=== PATIENT | female | born 1960 | race Caucasian/White ===

== ENCOUNTER 2024-01-18 17:54 | Emergency (ER) | payer OTHER, SELFPAY ==
[2024-01-18 17:59] VITALS: BP 131/77
[2024-01-18 18:21] LABS: % Eosinophils 3.3 % (0-6); % Immature Granulocytes 0.1 % (0-0.5); % Lymphocytes 25.7 % (20.5-51.1); % Monocytes 6.2 % (1.7-9.3); % Neutrophils 63.7 % (42.2-75.2); Absolute Basophils 0.1 10^3/uL (0-0.2); Absolute Eosinophils 0.2 10^3/uL (0-0.7); Absolute Lymphocytes 1.9 10^3/uL (1.2-3.4); Absolute Monocytes 0.5 10^3/uL (0.1-0.6); Absolute Neutrophils 4.7 10^3/uL (1.4-6.5); Hematocrit 37.6 % (37.0-47.0); Hemoglobin 12.5 g/dL (12.0-16.0); Mean Corp Hgb Conc. 33.2 g/dL (33.0-37.0); Mean Corpuscular Hgb 27.7 pg (27.0-31.0); Mean Corpuscular Volume 83.2 fL (81.0-99.0); Mean Platelet Volume 8.9 fL (7.4-10.4); Nucleated Red Blood Cells % 0 %; Platelet Count 250 10^3/uL (130-400); Red Blood Cell Count 4.52 10^6/uL (4.20-5.40); Red Cell Dist. Width 13.8 % (11.5-14.5); White Blood Cell Count 7.3 10^3/uL (4.8-10.8)
[2024-01-18 18:32] LABS: APTT 27.3 Sec (23.4-35.0)
[2024-01-18 18:47] LABS: ALT (SGPT) 25 U/L (0-35); AST (SGOT) 19 U/L (14-36); Albumin 4.3 g/dl (3.5-5.0); Alkaline Phosphatase 122 U/L (38-126); Blood Urea Nitrogen 18 mg/dl (7-17); Calcium 9.6 mg/dl (8.4-10.2); Carbon Dioxide 28 mmol/L (22-30); Chloride 105 mmol/L (98-107); Glucose 105 mg/dl (70-99); Potassium 3.9 mmol/L (3.5-5.1); Sodium 138 mmol/L (135-145); Total Bilirubin 0.3 mg/dl (0.2-1.3); Total Protein 6.9 g/dl (6.3-8.2); eGFR > 60.00
[2024-01-18 19:03] LABS: NT-proBNP 128 pg/ml; Troponin I < 0.012 ng/ml
[2024-01-18 21:03] VITALS: BP 117/67
[2024-01-18 21:53] LABS: D-Dimer 0.34 ug/mlFEU (0.00-0.50)
--- NOTE | 2024-01-19 00:15 | ED.GENMED ---
History of Present Illness
General
Chief Complaint: Breathing Problem
Source: patient
Exam Limitations: none
Time Seen by Provider: 01/18/24 21:15
Nursing documentation reviewed up to this point in time: agreed with
Travel History
Have you had any contact with someone who has COVID-19?: No
Do you have any symptoms of coronavirus? Fever > 100 degrees, chills, cough, shortness of breath, sore throat, loss of taste or smell, muscle aches, or headache?: No
History of Present Illness
History of Present Illness:
Patient states she had an episode of feeling faint on Sunday. Noted tingling of extremities. Symptoms occurred after attempting to shovel snow. Symptolms resolved with rest. States on she developed SOb and nausea. She woke during the
night withthe sound of her heart pounding in her ear. States she was seen by today and advised to come to ED for eval. No current symptoms. Has appt with cardiology on March 07.
Past History
Past History
ED Past Medical History: Cancer (breast, thyroid)
ED Past Surgical History: Other (Lumpectomy)
Social History
Tobacco: Non-smoker
Alcohol: None
Drug: None
Phy Exam
General Physical Exam
General Presentation: well appearing and no apparent distress
General age: appears stated age
General Skin: warm and dry
General Habitus: normal
General Mental: alert
Cardiovascular Exam
Cardiovascular Exam: regular rate/rhythm and no edema
Pulmonary Exam
Pulmonary Exam: lungs clear and no respiratory distress
Gastrointestinal Exam
Gastrointestinal Exam: normal bowel sounds, non tender, soft and no organomegaly
Musculoskeletal Exam
Musculoskeletal Exam: full ROM
Skin Exam
Skin Exam: normal color, warm/dry and no rash
Psychiatric Exam
Psychiatric Exam: normal mood/affect
Scores
Heart Failure Risk
Heart Failure Risk Score: Not Applicable
Course
Orders/Labs/Results
Orders:
Orders
01/18/24 18:04
ECG [Electrocardiogram (*1)] Urgent
Reason for Study: Chest Pain
01/18/24 18:05
EKG- Treatment ONCE
01/18/24 18:12
Complete Blood Count/With Diff Urgent
Comprehensive Metabolic Panel Urgent
NT-proBNP Urgent
PTT Urgent
Troponin I Urgent
01/18/24 21:32
D-Dimer Urgent
Abnormal Lab Results
01/18/24
18:12
BUN 18 H mg/dl
(7-17)
Glucose 105 H mg/dl
(70-99)
01/18/24 18:12
01/18/24 18:12
Vital Signs
Initial and Last Documented VS:
Initial Vital Signs
Temp Pulse Resp BP Pulse Ox
98.2 F 86 18 131/77 99
01/18/24 17:59 01/18/24 17:59 01/18/24 17:59 01/18/24 17:59 01/18/24 17:59
Last Documented Vital Signs
Temp Pulse Resp BP Pulse Ox
98.2 F 77 16 117/67 97
01/18/24 17:59 01/18/24 22:15 01/18/24 22:15 01/18/24 21:03 01/18/24 22:15
*Radiology
Radiology exam reviewed: radiology read reviewed
*Pulse Oximetry
Patient hypoxic: no
*Critical Care Note
Total Time (30-74mins, 75-104mins- exclusive of procedures): Not Applicable
Update Note
Update Note:
Labs, imaging results discussed with patient. No concerning findings in ED, no findings to explain symptoms. Currently asymptomatic. She is discharged home and will follow up with cardiology. referral placed to chest pain hot line. Given
instructions on s/s to return to ED and she is agreeable to plan.
ED Attending Note
-
Portions of this chart may have been created with voice recognition software.� Occasional wrong word or��sound alike� substitutions may have occurred due to the inherent limitations of voice recognition software.
Discharge Plan
Departure
Patient Disposition: Home (Routine Discharge)
Date of Disposition: 01/18/24
Time of Disposition: 22:14
Patient with high blood pressure during this ER visit?: No
Condition: Good
Covid-19: Not Applicable
Discharge Problem:
Chest pain
Instructions: Chest Pain (DC), Chest Pain DCA Follow Up
Referrals:
Clovis Rosario MD [Active] - Call in 1-3 days for appt
Leah Syed DO [Family Provider] -
Activity Restrictions/Additional Instructions:
Return to the emergency department for return of your symptoms or any further concerns.
Interventions
Interventions:
*Risk Screen - Suicide Last Done: 01/18/24 17:59
*General Assessment Last Done: 01/18/24 17:59
*Neglect/Abuse Screening Last Done: 01/18/24 20:56
ED- Fall Risk Assessment Last Done: 01/18/24 20:56
*ED COVID-19 Vaccine History Last Done: 01/18/24 20:56
*Nursing Disposition Last Done: 01/18/24 22:21
ED- Cardiac Assessment Last Done: 01/18/24 20:56
ED- Pulmonary Assessment Last Done: 01/18/24 20:56
Discharge Date and Time
Discharge Date/Time: 01/18/24 22:21
== END 2024-01-18 22:21 | disposition home or self-care (01) ==
LOC: EMR 17:54
PROVIDERS: Emergency Medicine; Nurse Practitioner; EMERGENCY PHYSICIAN Emergency Medicine; FAMILY PHYSICIAN Family Medicine
DX: R07.9 Chest pain, unspecified (principal); R55 Syncope and collapse; R20.2 Paresthesia of skin; R06.02 Shortness of breath; R11.0 Nausea
CPT/HCPCS: 99284; 80053; 83880; 84484; 85025; 85379; 85730; 93005

== ENCOUNTER → 2024-03-05 16:54 | Outpatient (REF) | payer OTHER, SELFPAY | LOC: RCS 16:54 | PROVIDERS: ATTENDING PHYSICIAN Internal Medicine Cardiovascular Disease; FAMILY PHYSICIAN Family Medicine | DX: R06.09 Other forms of dyspnea (principal); R55 Syncope and collapse; R07.89 Other chest pain | CPT/HCPCS: 93306 ==

== ENCOUNTER → 2024-04-14 15:19 | Outpatient (REF) | payer OTHER, SELFPAY | LOC: RCS 15:19 | PROVIDERS: ATTENDING PHYSICIAN Internal Medicine Cardiovascular Disease; FAMILY PHYSICIAN Family Medicine | DX: R07.89 Other chest pain (principal); R55 Syncope and collapse; R06.09 Other forms of dyspnea | CPT/HCPCS: 93017 ==

== ENCOUNTER 2024-04-25 11:44 | Day surgery (SDC) | payer OTHER, SELFPAY ==
[2024-04-23 09:04] VITALS: BMI 21.6
[2024-04-23 09:28] LABS: % Basophils 0.1 % (0-2); % Immature Granulocytes 0.5 % (0-0.5); % Monocytes 4.3 % (1.7-9.3); % Neutrophils 84.1 % (42.2-75.2); Absolute Immature Granulocytes 0.1 10^3/uL (0-0.05); Absolute Lymphocytes 1.4 10^3/uL (1.2-3.4); Absolute Monocytes 0.5 10^3/uL (0.1-0.6); Absolute Neutrophils 10.3 10^3/uL (1.4-6.5); Hematocrit 39.4 % (37.0-47.0); Hemoglobin 12.6 g/dL (12.0-16.0); Mean Corpuscular Volume 84.4 fL (81.0-99.0); Mean Platelet Volume 9.2 fL (7.4-10.4); Nucleated Red Blood Cells % 0 %; Platelet Count 278 10^3/uL (130-400); Red Blood Cell Count 4.67 10^6/uL (4.20-5.40); Red Cell Dist. Width 14.4 % (11.5-14.5); White Blood Cell Count 12.3 10^3/uL (4.8-10.8)
[2024-04-23 09:45] LABS: ALT (SGPT) 19 U/L (0-35); AST (SGOT) 17 U/L (14-36); Albumin 4.8 g/dl (3.5-5.0); Alkaline Phosphatase 115 U/L (38-126); Blood Urea Nitrogen 20 mg/dl (7-17); Calcium 10.5 mg/dl (8.4-10.2); Carbon Dioxide 23 mmol/L (22-30); Chloride 106 mmol/L (98-107); Estimated Creatinine Clearance 79 ml/min; Glucose 118 mg/dl (70-99); Sodium 142 mmol/L (135-145); Total Bilirubin 0.3 mg/dl (0.2-1.3); Total Protein 7.3 g/dl (6.3-8.2); eGFR > 60.00
[2024-04-25] VITALS (9 sets, daily range): BP systolic 128–160; BP diastolic 56–70; BMI 21.5
[2024-04-25] MEDS: NSS 204 ML IV (12:45)
[2024-04-25] MEDS: NSS 1000 IV (14:10)
--- NOTE | 2024-04-25 14:14 | ITS.CL.CATH ---
[employer] - Catheterization
Cardiac Catheterization
Procedure Report:
CARDIAC CATHETERIZATION REPORT
Date of Procedure: 04/25/2024
Referring: Bari Roman MD
Indication: Exertional dyspnea/angina/abnormal stress test
HEMODYNAMIC DATA
AO: 136/74
LV: 136/16
LEFT VENTRICULOGRAPHY: Hyperdynamic left ventricular wall motion with EF 68%
CORONARY ANGIOGRAPHY
Dominance: Right
Left Main: Normal
LAD: Trivial luminal irregularities
Circumflex: Normal
RCA: Normal dominant vessel
Closure Device: None-the procedure was performed via the right radial artery. The Waldemar's test was normal prior to the procedure.
Radiation (mGy): 130
DAP (cm2.Gy): 9.0
Fluoroscopy time: 2.3 minutes
CONCLUSIONS
1: Normal left ventricular function with EF 68%
2: No significant CAD
3. Consider pulmonary evaluation including chest x-ray and PFTs for further evaluation of her exertional dyspnea
Copy to: Bari Roman MD, Leah Syed DO
Raul Zamudio MD, [facility], [facility]
== END 2024-04-25 16:45 | disposition home or self-care (01) ==
LOC: CATH 11:44
PROVIDERS: ATTENDING PHYSICIAN Internal Medicine Cardiovascular Disease; FAMILY PHYSICIAN Family Medicine; OTHER PHYSICIAN Internal Medicine Cardiovascular Disease
DX: R06.09 Other forms of dyspnea (principal); R07.9 Chest pain, unspecified; R94.39 Abnormal result of other cardiovascular function study; E03.9 Hypothyroidism, unspecified; Z85.3 Personal history of malignant neoplasm of breast; Z87.891 Personal history of nicotine dependence; Z79.82 Long term (current) use of aspirin
CPT/HCPCS: 36415; 80053; 85025; 93005; 93458; C1894; Q9967